=== PATIENT | female | born 1995 | race Two or more races ===

== ENCOUNTER 2018-08-30 17:20 | Emergency (ER) | payer MEDICAID, OTHER ==
[~2018-08-30] VITALS: Ht 157.5 cm; Wt 80.3 kg
[2018-08-30 23:05] LABS: Urine Bacteria FEW /hpf (None Seen); Urine Blood 2+ /uL (Negative); Urine Mucus MODERATE (None Seen); Urine Specific Gravity 1.027 (1.001-1.035); Urine WBC 27 /hpf (0 - 5)
[2018-08-31 00:05] VITALS: BP 126/69
== END 2018-08-31 00:16 | disposition home or self-care (01) ==
LOC: ER 17:25
DX: F12.188 Cannabis abuse with other cannabis-induced disorder (principal); F17.210 Nicotine dependence, cigarettes, uncomplicated; F12.10 Cannabis abuse, uncomplicated
CPT/HCPCS: 81001; 81025; 93005

== ENCOUNTER 2024-12-10 17:57 | Emergency (ER) | payer MEDICAID, OTHER ==
[~2024-12-10] VITALS: Ht 157.5 cm; Wt 93.8 kg
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
[2024-12-10] MEDS: ACETAMINOPHEN 325 MG TAB PO ONE (20:24)
[2024-12-10 20:32] VITALS: BP 109/66; TEMP 98.5
[2024-12-10 20:33] VITALS: PULSE 91; RESP 16; O2SAT 96
== END 2024-12-10 20:35 | disposition home or self-care (01) ==
LOC: ER 18:08
DX: S20.219A Contusion of unspecified front wall of thorax, initial encounter (principal); F17.210 Nicotine dependence, cigarettes, uncomplicated; V89.2XXA Person injured in unspecified motor-vehicle accident, traffic, initial encounter; Y93.89 Activity, other specified; Y92.410 Unspecified street and highway as the place of occurrence of the external cause; Y99.8 Other external cause status
CPT/HCPCS: 71046